=== PATIENT | male | born 1955 | race Caucasian/White ===

== ENCOUNTER 2016-10-02 09:38 | Day surgery (SDC) | payer OTHER ==
[~2016-10-02] VITALS: Ht 180.3 cm; Wt 65.4 kg
[~2016-10-02 09:38] MED LIST: ACET-2247 PO; ARGI1POW13 PO; ASA3 PO; ASCO250T5 PO; ATOR40TA28 PO; BISA10S PR; CHOL200016 PO; CLOP75 PO; DOCU250C91 PO; FE RC; FERR-89 PO; LISI-660 PO; LORA-192 PO; MOM30 PO; MULT-248 PO; NICO14T TD; NICO21T TD; NICO7T TD; NITR0.4T10 SL; OMEP20 PO; OXYC20 PO; PERCT10 PO; PRAS10TA6 PO; PROT54LI PO; RANO500T3 PO; SODIUM CHLORIDE 0.9% 1,000 ML IV ONE; ZINC220 PO; ZOLP10TA2 PO
[2016-10-02] MEDS ORDERED: RINGERS SOLUTION,LACTATED 1,000 ML IV ONE ×2 (10:30→10:59)
[2016-10-02] MEDS ORDERED: FentaNYL CITRATE-PF 100 MCG/2 ML VIAL IVP ONE ×3 (12:15→14:45)
[2016-10-02] MEDS ORDERED: FentaNYL CITRATE-PF 100 MCG/2 ML VIAL ONE (12:35)
[2016-10-02 13:26] LABS: INR 1.1 (0.9-1.1); PROTHROMBIN TIME 11.4 SEC (9.4-11.6)
[2016-10-02] MEDS ORDERED: GUM MASTIC/STORAX/MSAL/ALCOHOL LIQUID 0.67 ML VIAL TP ONE (13:38)
[2016-10-02] MEDS ORDERED: BACITRACIN 28.4 GM OINTMENT TP ONE (13:39)
[2016-10-02] MEDS ORDERED: MINERAL OIL 10 ML VIAL TP ONE (13:39)
== END 2016-10-02 16:15 | disposition home or self-care (01) ==
LOC: SURGERY 09:38
PROVIDERS: ATTEND Surgery
DX: L97.929 Non-pressure chronic ulcer of unspecified part of left lower leg with unspecified severity (principal); Z53.8 Procedure and treatment not carried out for other reasons
CPT/HCPCS: 36415; 85610; 85730; 93005; J3010; J7120

== ENCOUNTER 2016-10-23 06:32 | Day surgery (SDC) | payer OTHER ==
[~2016-10-23] VITALS: Ht 182.9 cm; Wt 67.3 kg
[~2016-10-23 06:32] MED LIST changes: -SODIUM CHLORIDE 0.9% 1,000 ML IV ONE
[2016-10-23] MEDS ORDERED: RINGERS SOLUTION,LACTATED 1,000 ML IV ONE ×3 (06:56→10:39)
[2016-10-23 07:45] LABS: INR 1.1 (0.9-1.1); PROTHROMBIN TIME 11.4 SEC (9.4-11.6)
[2016-10-23] MEDS ORDERED: LIDOCAINE HCL 1%/EPI 1:200,000/PF 30 ML VIAL ONE (08:01)
[2016-10-23] MEDS ORDERED: SODIUM BICARBONATE 50 MEQ/50 ML VIAL ONE (08:01)
[2016-10-23] MEDS ORDERED: MINERAL OIL 10 ML VIAL TP ONE ×2 (08:01→09:56)
[2016-10-23] MEDS ORDERED: SODIUM CHLORIDE 0.9% 0 ML IV ONE (08:02)
[2016-10-23] MEDS: LIDOCAINE HCL/PF 1% 30 ML VIAL ONE ×2 (10:01→11:10)
[2016-10-23] MEDS: BUPIVACAINE HCL/PF 0.25% 30 ML VIAL ONE ×2 (10:01→11:10)
[2016-10-23] MEDS ORDERED: FentaNYL CITRATE-PF 100 MCG/2 ML VIAL IVP PRN (10:15)
[2016-10-23] MEDS ORDERED: MEPERIDINE-PF 25 MG/ML SYRINGE IVP PRN (10:15)
[2016-10-23] MEDS ORDERED: BUPIVACAINE HCL/PF 0.25% 30 ML VIAL ONE (11:10)
[2016-10-23] MEDS ORDERED: LIDOCAINE HCL/PF 1% 30 ML VIAL ONE (11:10)
[2016-10-23] MEDS ORDERED: MEPERIDINE-PF 25 MG/ML SYRINGE ONE (11:38)
[2016-10-23] MEDS ORDERED: HYDROmorphone 2 MG/ML SYRINGE ONE (11:38)
[2016-10-23] MEDS: HYDROmorphone 2 MG/ML SYRINGE IVP PRN ×2 (11:43→11:53)
[2016-10-23] MEDS ORDERED: MORPHINE SULFATE 1 MG/ML IVP ONE (12:00)
[2016-10-23] MEDS ORDERED: MIDAZOLAM HCL 2 MG/2 ML VIAL IVP ONE (12:00)
[2016-10-23] MEDS ORDERED: FentaNYL CITRATE-PF 250 MCG/5 ML VIAL IVP ONE (12:00)
[2016-10-23] MEDS ORDERED: PROPOFOL 1% 20 ML VIAL IVP ONE (12:00)
[2016-10-23] MEDS ORDERED: 0.9% SODIUM CHLORIDE 10 ML VIAL IVP ONE (12:00)
[2016-10-23] MEDS ORDERED: SUCCINYLCHOLINE CHLORIDE 20 MG/ML 10 ML VIAL IVP ONE (12:00)
[2016-10-23] MEDS ORDERED: LIDOCAINE HCL/PF 2% 5 ML VIAL INJ ONE (12:00)
[2016-10-23] MEDS ORDERED: OXYGEN THERAPY IH SCH (20:00)
== END 2016-10-23 13:40 | disposition home or self-care (01) ==
LOC: SURGERY 06:32
PROVIDERS: ATTEND Surgery
DX: T81.89XA Other complications of procedures, not elsewhere classified, initial encounter (principal); T79.A22A Traumatic compartment syndrome of left lower extremity, initial encounter; I10 Essential (primary) hypertension; I25.2 Old myocardial infarction; J44.9 Chronic obstructive pulmonary disease, unspecified; I25.10 Atherosclerotic heart disease of native coronary artery without angina pectoris; F17.200 Nicotine dependence, unspecified, uncomplicated; F10.21 Alcohol dependence, in remission; Z95.1 Presence of aortocoronary bypass graft; Z86.19 Personal history of other infectious and parasitic diseases; Z79.01 Long term (current) use of anticoagulants; Y83.8 Other surgical procedures as the cause of abnormal reaction of the patient, or of later complication, without mention of misadventure at the time of the procedure; Y92.9 Unspecified place or not applicable
CPT/HCPCS: 15100; 36415; 85610; 85730; J0330; J0690; J1170; J2175; J2250; J2274; J2704; J3010; J3490 ×3; J7120; J7040

== ENCOUNTER 2016-11-29 09:43 | Emergency (ER) | payer OTHER ==
[~2016-11-29] VITALS: Ht 179.1 cm; Wt 67.0 kg
[~2016-11-29 09:43] MED LIST changes: -FERR-89 PO; +FERS325 PO
[2016-11-29 10:18] LABS: EOSINOPHILS % (AUTO) 0.7 % (1.0-6.0); HEMATOCRIT 40.2 % (41-53); HEMOGLOBIN 12.9 g/dL (13.5-17.5); LYMPHOCYTES # (AUTO) 1.5 K/uL (1.0-4.8); LYMPHOCYTES % (AUTO) 18.5 % (22.0-44.0); MEAN CORPUSCULAR HEMOGLOBIN 26.8 pg (26.0-34.0); MEAN CORPUSCULAR HGB CONC 32.2 G/dL (31.0-37.0); MEAN CORPUSCULAR VOLUME 83 fL (80-100); MONOCYTES # (AUTO) 0.7 K/uL (0.1-1.0); MONOCYTES % (AUTO) 8.7 % (2.0-9.0); NEUTROPHILS # (AUTO) 5.7 K/uL (1.8-7.7); NEUTROPHILS % (AUTO) 71.1 % (40.0-70.0); PLATELET COUNT (AUTO) 267 K/uL (150-450); RED BLOOD CELL COUNT(AUTO) 4.83 MIL/uL (4.50-5.90); RED CELL DISTRIBUTION WIDTH 19.1 % (11.5-14.5); WHITE BLOOD COUNT (AUTO) 8.1 K/uL (4.5-11.0)
[2016-11-29 10:28] LABS: ANION GAP 10 mmol/L (8-16); CALCIUM, TOTAL 9.3 mg/dL (8.8-10.5); CARBON DIOXIDE 29 mmol/L (22-29); CHLORIDE 103 mmol/L (98-107); CREATININE 0.94 mg/dL (0.60-1.30); GLOMERULAR FILTR. RATE CALC > 60 mL/min (>60); POTASSIUM 3.5 mmol/L (3.5-5.1); SODIUM SERUM 142 mmol/L (136-145); UREA NITROGEN, BLOOD 12 mg/dL (7-18)
[2016-11-29 10:33] LABS: ALANINE AMINOTRANSFERASE 22 U/L (12-78); ALBUMIN 3.8 g/dL (3.4-5.0); ASPARTATE AMINOTRANSFERASE 19 U/L (15-37); BILIRUBIN,TOTAL 0.4 mg/dL (0.1-1.0)
[2016-11-29] MEDS ORDERED: HYDROCODONE/ACETAMINOPHEN 10-325 MG TABLET PO ONE (11:30)
[2016-11-29] MEDS ORDERED: HYDROmorphone 2 MG/ML SYRINGE IM ONE (12:30)
[2016-11-29 13:53] LABS: RBC MORPHOLOGY COMMENT ABNORMAL RBC MORPH
[2016-11-29] MEDS ORDERED: HYDROmorphone 2 MG/ML SYRINGE IVP ONE (16:00)
[2016-11-29 16:45] VITALS: BP 118/77
== END 2016-11-29 17:02 | disposition home or self-care (01) ==
LOC: EMS 09:45
DX: I73.9 Peripheral vascular disease, unspecified (principal); M79.605 Pain in left leg; F17.210 Nicotine dependence, cigarettes, uncomplicated; F12.10 Cannabis abuse, uncomplicated; F41.9 Anxiety disorder, unspecified; I20.9 Angina pectoris, unspecified; I25.10 Atherosclerotic heart disease of native coronary artery without angina pectoris; I10 Essential (primary) hypertension; E78.00 Pure hypercholesterolemia, unspecified; I25.2 Old myocardial infarction; Z86.718 Personal history of other venous thrombosis and embolism; Z79.82 Long term (current) use of aspirin; Z91.018 Allergy to other foods
CPT/HCPCS: 36415; 71010; 80053; 84484; 85025; 93005; 93925; 96372; 96374; 99285; J1170